=== PATIENT | male | born 1985 | race Caucasian/White ===

== ENCOUNTER 2018-09-20 10:53 | Emergency (ER) | payer SELFPAY ==
[~2018-09-20 10:53] MED LIST: ALBU90AE IH; AMOX-559 PO; BUPR1FIL7 PO; CYCL10TA29 PO; FLUT16SP19 NS; GUAI1200 PO; HYDR-653 PO; HYDR25CA83 PO; IBUP-136 PO; IBUP600T22 PO; IBUP800T37 PO; IPRA4AER IH; KET10 PO; LOR5/325 PO; ONDA4TAB PO; ONDA4TAB9 PO; ONDA8TAB98 PO; OXYC-856 PO; TRAM-420 PO; motrin
[2018-09-20 10:56] VITALS: BP 128/70
--- NOTE | 2018-09-20 10:57 | ER Report ---
History and Physical Time Seen By MD: 10:57 HPI/ROS CHIEF COMPLAINT: Trauma to right ear HISTORY OF PRESENT ILLNESS: 33-year-old male patient presents to emergency room with complaint of trauma to his right ear. Patient states that he was trying to clean out his years. He did put in some of the drops interview. He was in using a Q-tip to clean it out. He states that he left his Q-tip in his ear and went to help his roommate. He states that when he reached up for his Q-tip that he smashing it into the ER trauma itself. He states that that he had significant amounts of bleeding. He states that he since then has been having a little bit of dizziness, no vomiting or diarrhea. Patient states he has had a bit of a headache and did note that he had some lights flashing of the edges of his vision last night. Patient did take some Tylenol for this which seemed to help. Allergies: Coded Allergies: coconut (Verified Allergy, Severe, 01/03/16) stops breathing Coconut (Verified Allergy, Unknown, 08/18/15) diphenhydramine (Verified Allergy, Unknown, 08/18/15) Uncoded Allergies: mustard (Adverse Reaction, Mild, SWELLING, 11/17/13) Home Meds Reported Medications Buprenorphine Hcl/Naloxone Hcl (SUBOXONE 8 MG-2 MG SL FILM) 1 Each Film, 0.25 FILM PO BID, #15 12/11/15 Discontinued Reported Medications Ibuprofen (IBUPROFEN) 800 Mg Tablet, 1 TAB PO Q8H, TAB 12/11/15 Ibuprofen (IBUPROFEN) 200 Mg Capsule, 4 CAP PO Q6H PRN for FEVER, CAPSULE 12/11/15 Albuterol Sulfate (Proair Respiclick) 90 Mcg Aer.pow.ba, 1 PUFF IH Q4-6H PRN for WHEEZING, #1 12/11/15 Ibuprofen (IBUPROFEN) 800 Mg Tablet, 4 TAB PO Q8H, TAB 08/18/15 Guaifenesin (MUCINEX) 1,200 Mg Tbmp.12hr, 1200 MG PO PRN 08/18/15 Discontinued Scripts Ofloxacin (OFLOXACIN) 5 Ml Drops, 5 ML OT BID, #1 BOTTLE Instill into the right ear. Prov:ELLE STEWARTP 09/20/18 Amoxicillin/Pot Clav 875-125 Mg Tab (AUGMENTIN 875-125 TABLET) 1 Each Tablet, 1 TAB PO Q12H, #14 TAB Prov:ELLE STEWART BEBE 09/20/18 Hydrocodone Bit/Acetaminophen (HYDROCODON-ACETAMINOPHEN 5-325) 1 Each Tablet, 1 EACH PO Q4-6H, #10 TAB Prov:LINDA FLOWER [employer] 02/06/16 Ipratropium/Albuterol Sulfate (COMBIVENT RESPIMAT INHAL SPRAY) 4 Gm Aer.w.adap, 1 EACH IH QID PRN for SHORTNESS OF BREATH, #1 INHALER Prov:ELLE STEWART [employer] 12/11/15 Fluticasone Prop 50 Mcg Ns (FLONASE 50 MCG NS) 16 Gm [place].susp, 1 SPRAY NS BID, #1 BOT Prov:ELLE STEWART [facility] 12/11/15 Amoxicillin/Pot Clav 875-125 Mg Tab (AUGMENTIN 875-125 TABLET) 1 Each Tablet, 1 TAB PO Q12H, #20 TAB Prov:ELLE STEWART [employer] 12/11/15 Ondansetron (ZOFRAN ODT) 4 Mg Tab.rapdis, 4 MG PO Q6H for Nausea, #20 TAB.LUKAS Prov:NATALEE KHAN DO 11/20/15 Ondansetron 4 Mg Odt (ONDANSETRON 4 MG ODT) 4 Mg Tab.rapdis, 4 MG PO Q6H, #10 TAB One tablet every 6 hours as needed for nausea and vomiting. Prov:LINDA FLOWER [employer] 08/18/15 Hydrocodone Bit/Acetaminophen (HYDROCODON-ACETAMINOPHEN 5-325) 1 Each Tablet, 1 EACH PO Q6H, #14 Prov:LINDA FLOWER [employer] 08/18/15 Past Medical/Surgical History Patient has a past medical history of opiate abuse, depression, anxiety, suicide attempt. Patient denies any surgical history. Reviewed Nurses Notes: Yes Hx Smoking: Yes Smoking Status: Current: Every Day Smoker Exposure to Second Hand Smoke?: Yes Hx Substance Use Disorder: Yes (OPIAT WITHDRWAL) Hx Alcohol Use: No Constitutional Vital Sign - Last 24 Hours 09/20/18 10:56 Temp 97.8 Pulse 76 Resp 16 B/P (MAP) 128/70 Pulse Ox 97 O2 Delivery Room Air Physical Exam General Appearance: The patient is alert, has no immediate need for airway protection and no current signs of toxicity. ENT: Left tympanic membrane is pearly-mendoza, right tympanic membrane there is blood noted at the bottom third of the tympanic membrane. I am unable to visualize an actual hole in the tympanic membrane, however I do believe that is covered up with the blood. Posterior pharynx does show some postnasal drip with mucus noted to the right side. Respiratory: Chest is non tender, lungs are clear to auscultation. Cardiac: regular rate and rhythm Skin: No rashes or lesions. DIFFERENTIAL DIAGNOSIS: After history and physical exam differential diagnosis was considered for ruptured tympanic membrane. Medical Decision Making ED Course/Re-evaluation ED Course Patient was admitted on exam room, history and physical were obtained. Differential diagnoses were considered. On examination lungs are clear, heart is regular. Patient does have blood in the auditory canal of the right ear. I believe that is likely secondary to a ruptured tympanic membrane. I discussed this with the patient. I discussed that we'll go ahead and put him on 2 antibiotics. Patient states that he's been having significant amounts of trouble with going over to [place] these had lots of pressure in his years. I believe after looking at the posterior pharynx is an 80 does have some postnasal drip that that is the underlying cause of that. I did recommend he take some Sudafed for that. He is follow-up Dr. Houser if he still having problems hearing in 2-3 weeks. He is to return to emergency room if condition worsens. Patient verbalized understanding and agreement with plan. Decision to Disposition Date: Sep 20, 2018 Decision to Disposition Time: 11:14 Depart Departure Latest Vital Signs Vital Signs Date Time Temp Pulse Resp B/P (MAP) Pulse Ox O2 Delivery O2 Flow Rate FiO2 09/20/18 10:56 97.8 76 16 128/70 97 Room Air Impression: Primary Impression: Ruptured ear drum Additional Impression: Eustachian tube dysfunction Condition: Improved Disposition: HOME OR SELF-CARE Patient Instructions: Ruptured Eardrum (ED) Additional Instructions: Increase fluid intake. Get plenty of rest. Follow up with Dr. Houser ENT in 2-3 weeks if you are still having problems hearing. Return to the ER if condition worsens. Avoid having water go into your ear for the next 2-3 weeks. Take Tylenol or Ibuprofen as needed for pain. Take Sudafed for the ear pressure when traveling. Problem Qualifiers Primary Impression: Ruptured ear drum Laterality: right Qualified Codes: H72.91 - Unspecified perforation of tympanic membrane, right ear Additional Impression: Eustachian tube dysfunction Laterality: bilateral Qualified Codes: H69.83 - Other specified disorders of eustachian tube, bilateral ELLE STEWART Sep 20, 2018 10:57
[2018-09-20] MEDS ORDERED: OFLO5DRO45 OT (11:13)
[2018-09-20] MEDS ORDERED: AMOX-559 PO (11:13)
== END 2018-09-20 11:28 | disposition home or self-care (01) ==
LOC: ER 11:14
DX: H72.91 Unspecified perforation of tympanic membrane, right ear (principal); H69.83 Other specified disorders of Eustachian tube, bilateral
CPT/HCPCS: 99282